=== PATIENT | female | born 1970 | race Caucasian/White ===

== ENCOUNTER 2021-04-27 10:43 | Day surgery (SDC) | payer OTHER ==
[~2021-04-27] VITALS: Ht 165.1 cm; Wt 115.1 kg
== END 2021-04-27 12:49 | disposition home or self-care (01) ==
LOC: ORSCSDS 10:43
PROVIDERS: Internal Medicine Gastroenterology
PROC: 0DBN8ZX Excision of Sigmoid Colon, Via Natural or Artificial Opening Endoscopic, Diagnostic (ICD-10-PCS; principal; 2021-04-27 12:00)
PROC: 0DBL8ZX Excision of Transverse Colon, Via Natural or Artificial Opening Endoscopic, Diagnostic (ICD-10-PCS; principal; 2021-04-27 12:00)
PROC: 0DBH8ZX Excision of Cecum, Via Natural or Artificial Opening Endoscopic, Diagnostic (ICD-10-PCS; principal; 2021-04-27 12:00)
PROC: 0DBM8ZX Excision of Descending Colon, Via Natural or Artificial Opening Endoscopic, Diagnostic (ICD-10-PCS; principal; 2021-04-27 12:00)
DX: Z12.11 Encounter for screening for malignant neoplasm of colon (principal); Z87.891 Personal history of nicotine dependence; D12.0 Benign neoplasm of cecum; K63.5 Polyp of colon; D12.3 Benign neoplasm of transverse colon; K57.30 Diverticulosis of large intestine without perforation or abscess without bleeding; K64.4 Residual hemorrhoidal skin tags; E66.9 Obesity, unspecified; Z68.41 Body mass index [BMI] 40.0-44.9, adult
CPT/HCPCS: 88305; J2704; J7120

== ENCOUNTER 2024-03-15 08:50 | Inpatient (IN) | payer OTHER ==
[~2024-03-15] VITALS: Ht 165.1 cm; Wt 121.9 kg
[2024-03-15 09:48] LABS: BASOPHILS ABSOLUTE AUTO 0.03 K/mm3 (0.00-0.23); BASOPHILS PERCENT AUTO 1 % (0-2); EOSINOPHILS ABSOLUTE AUTO 0.02 K/mm3 (0.00-0.68); EOSINOPHILS PERCENT AUTO 1 % (0-6); Hematocrit 44.6 % (33.0-51.0); Hemoglobin 14.9 g/dL (11.5-16.0); IMMATURE GRAN ABSOLUTE AUTO 0.01 K/mm3 (0.00-0.10); IMMATURE GRAN PERCENT AUTO 0 % (0-1); LYMPHOCYTES ABSOLUTE AUTO 1.16 K/mm3 (0.84-5.20); LYMPHOCYTES PERCENT AUTO 28 % (21-46); MONOCYTES ABSOLUTE AUTO 0.25 K/mm3 (0.16-1.47); MONOCYTES PERCENT AUTO 6 % (4-13); Mean Corpuscular HGB 29.9 pg (26.0-34.0); Mean Corpuscular HGB Conc 33.4 g/dL (31.5-36.5); Mean Corpuscular Volume 90 fL (80-100); NEUTROPHILS ABSOLUTE AUTO 2.69 K/mm3 (1.96-9.15); NEUTROPHILS PERCENT AUTO 65 % (41-73); Platelet Count 181 K/mm3 (150-400); RDW Coefficient Variation 12.2 % (11.7-14.2); Red Blood Cell Count 4.98 M/mm3 (3.80-5.20); White Blood Cell Count 4.16 K/mm3 (4.00-11.30)
[2024-03-15 10:20] LABS: Calcium, Blood 8.7 mg/dL (8.5-10.1); Creatinine, Blood 0.81 mg/dL (0.40-1.00); Potassium, Blood 3.5 mmol/L (3.5-5.5)
[2024-03-15 11:37] LABS: Adenovirus Not Detected (NOT DETECT); Coronavirus 229E Not Detected (NOT DETECT); Coronavirus HKU1 Not Detected (NOT DETECT); Coronavirus NL63 Not Detected (NOT DETECT); Coronavirus OC43 Not Detected (NOT DETECT); Human Metapneumovirus Detected (NOT DETECT); Human Rhinovirus/Enterovirus Not Detected (NOT DETECT); SARS-Cov-2 (COVID-19), BioFire Not Detected (NOT DETECT)
[2024-03-15 11:38] LABS: Bordetella pertussis Not Detected (NOT DETECT); Chlamydophila pneumoniae Not Detected (NOT DETECT); Influenza A/2009-H1 Not Detected (NOT DETECT); Influenza A/H1 Not Detected (NOT DETECT); Influenza A/H3 Not Detected (NOT DETECT); Influenza B Not Detected (NOT DETECT); Mycoplasma pneumoniae Not Detected (NOT DETECT); Parainfluenza Virus 1 Not Detected (NOT DETECT); Parainfluenza Virus 2 Not Detected (NOT DETECT); Parainfluenza Virus 3 Not Detected (NOT DETECT); Parainfluenza Virus 4 Not Detected (NOT DETECT); Respiratory Syncytial Virus Not Detected (NOT DETECT)
[2024-03-15] MEDS ORDERED: Albuterol 2.5 MG/3 ML VIAL INH PRN (12:45)
[2024-03-15] MEDS ORDERED: Acetaminophen 325 MG TABLET PO PRN (12:50)
[2024-03-15] MEDS ORDERED: Ipratropium/Albuterol SulF 2.5-0.5MG/3 ML Amp INH SCH (12:50)
[2024-03-15] MEDS ORDERED: Benzonatate 100 MG Cap PO PRN (12:50)
[2024-03-15] MEDS ORDERED: MethylPREDNISolone Sod Succ 125 MG Vial IV SCH (13:00)
[2024-03-15] MEDS ORDERED: Enoxaparin 40 MG/0.4 ML SYR SC SCH (13:00)
[2024-03-15 15:25] VITALS: BP 117/71
--- NOTE | 2024-03-15 17:02 | NUR ---
ER ADMIT Patient alert & oriented x4, independent in the room. Reports symptoms started monday and have progressed. She received Rocephin IM & by the next day she had a rash on bilateral hands & feet. Lungs diminished, constant dry hacking cough. 2lpm oxygen to maintain sats. Droplet isolation for viral PNA. Vitals stable. Will continue plan of care.
[2024-03-15 19:52] VITALS: BP 133/71
[2024-03-16 03:28] VITALS: BP 127/74
--- NOTE | 2024-03-16 04:50 | NUR ---
SHIFT SUMMARY PT CONTINUES TO HAVE DRY/HACKING NONPRODUCTIVE COUGH. TESSALON GIVEN X1. AMBULATING INDEPENDENTLY TO BATHROOM. ON 2LPM VIA NC. BASELINE IS ROOM AIR. NO NEW CONCERNS THIS MORNING. PT RESTING COMFORTABLY IN BED, HOB ELEVATED. RESPIRATIONS EVEN AND UNLABORED. CALL LIGHT IN REACH
[2024-03-16 05:03] LABS: Hematocrit 41.9 % (33.0-51.0); Hemoglobin 13.9 g/dL (11.5-16.0); Mean Corpuscular HGB 29.6 pg (26.0-34.0); Mean Corpuscular HGB Conc 33.2 g/dL (31.5-36.5); Mean Corpuscular Volume 89 fL (80-100); Mean Platelet Volume 9.8 fL (9.1-12.4); Platelet Count 188 K/mm3 (150-400); RDW Coefficient Variation 12.1 % (11.7-14.2); RDW Standard Deviation 40.2 fL (35.1-46.3); White Blood Cell Count 2.79 K/mm3 (4.00-11.30)
[2024-03-16 05:52] LABS: Bun/Creatinine Ratio 16.8 (12.0-20.0); Calcium, Blood 9.2 mg/dL (8.5-10.1); Creatinine, Blood 0.83 mg/dL (0.40-1.00)
[2024-03-16 06:52] LABS: BAND PERCENT MAN 3 % (0-8); BASOPHILS PERCENT MAN 0 % (0-2); EOSINOPHILS PERCENT MAN 0 % (0-6); LYMPHOCYTES % ATYPICAL MANUAL 5 % (0-0); LYMPHOCYTES ABSOLUTE MAN 0.92 K/mm3 (0.84-5.20); LYMPHOCYTES PERCENT MAN 28 % (21-46); MONOCYTES ABSOLUTE MAN 0.05 K/mm3 (0.16-1.47); MONOCYTES PERCENT MAN 2 % (4-13); NEUTROPHILS ABSOLUTE MAN 1.78 K/mm3 (1.96-9.15); PLASMA CELL ABSOLUTE MAN 0.02 K/mm3 (0.00-0.00); PLASMA CELLS PERCENT MAN 1 % (0-0); SEG NEUTROPHILS PERCENT MAN 61 % (41-73); TOTAL CELLS COUNTED 100
[2024-03-16 07:22] VITALS: BP 143/76
[2024-03-16] MEDS ORDERED: DiphenhydrAMINE HCL 25 MG Cap PO PRN (07:55)
[2024-03-16] MEDS ORDERED: HYDROcodone 5-APAP 325 TAB PO PRN (07:55)
[2024-03-16] MEDS ORDERED: Docusate Sodium 100 MG Cap PO PRN (08:00)
[2024-03-16] MEDS ORDERED: MethylPREDNISolone Sod Succ 125 MG Vial IV SCH (08:00)
[2024-03-16 15:56] VITALS: BP 124/77
--- NOTE | 2024-03-16 16:12 | NUR ---
DAYSHIFT SUMMARY Patient alert & oriented x4. Continues to have dry hacking cough. 2lpm O2 to maintain sats. Rash on feet/hands improving, pinkish color with small spots. Yesterday was bright red color. Brilliant given for cough and benadryl given for pruritis. IV Solumderol administred. No acute changes to patient status. Will continue plan of care.
[2024-03-16 19:21] VITALS: BP 129/71
[2024-03-17 02:58] VITALS: BP 126/74
--- NOTE | 2024-03-17 04:11 | NUR ---
SHIFT SUMMARY LILLIAM WAS ALERT AND FULLY ORIENTED AND INDEPENDENT IN ROOM. PT HAS A HARSH INTERMITTENT COUGH, RESPONDED WELL TO AVAILABLE MEDICATIONS. REDNESS TO HANDS AND FEET HAS IMPROVED, BUT PT STATES ITCHINESS IS WORSE. MEDICATED WITH BENADRYL. NO ACUTE EVENTS, NO CHANGES TO PT CONDITION. PT RESTING IN BED AT A LOW POSITION WITH CALL LIGHT IN REACH.
[2024-03-17 07:47] VITALS: BP 118/68
[2024-03-17] MEDS ORDERED: ACET325 PO (13:30)
[2024-03-17] MEDS ORDERED: ALBU90OI INH (13:30)
[2024-03-17] MEDS ORDERED: HYDR1TAB94 PO (13:33)
[2024-03-17] MEDS ORDERED: BENADRYL25 M1 PO (13:33)
[2024-03-17] MEDS ORDERED: PRED20 PO (13:35)
--- NOTE | 2024-03-17 17:06 | NUR ---
DISCHARGE SUMMARY PT DISCHARGED TO HOME. PT LEFT ROOM VIA WHEELCHAIR WITH THIS RN ESCORT AFTER 1400. IV REMOVED AND BELONGINGS RETURNED. PT EDUCATED ON ALL DISCHARGE INSTRUCTIONS, ALL QUESTIONS ANSWERED. PT AGREES TO FOLLOW UP WITH PCP AND TO TAKE MEDICATIONS PRESCRIBED. PT EAGER TO GO HOME.
== END 2024-03-17 14:13 | disposition home or self-care (01) | DRG 193 ==
LOC: ER 08:50 → MEDS 14:43
PROVIDERS: Emergency Medicine; ADMIT Internal Medicine
DX: J12.3 Human metapneumovirus pneumonia (principal); J96.01 Acute respiratory failure with hypoxia; J44.0 Chronic obstructive pulmonary disease with (acute) lower respiratory infection; Z68.42 Body mass index [BMI] 45.0-49.9, adult; R73.9 Hyperglycemia, unspecified; R79.1 Abnormal coagulation profile; E66.01 Morbid (severe) obesity due to excess calories; L27.0 Generalized skin eruption due to drugs and medicaments taken internally; T36.1X5A Adverse effect of cephalosporins and other beta-lactam antibiotics, initial encounter; G25.1 Drug-induced tremor; T38.0X5A Adverse effect of glucocorticoids and synthetic analogues, initial encounter; Z88.2 Allergy status to sulfonamides; Z87.891 Personal history of nicotine dependence
CPT/HCPCS: 0202U; 36415; 80048; 83036; 83605; 85025; 94640; 94664; 94760; 94761; 96372-59; 96374; 99285-25; A9270; J1650; J2930

== ENCOUNTER → 2025-01-08 | Outpatient (CLI) | payer OTHER ==
[~2025-01-08] MED LIST: ACET325 PO; ALBU90OI INH; BENADRYL25 M1 PO; HYDR1TAB94 PO; PRED20 PO
[2025-01-12 17:59] LABS: HPV HIGH RISK BY TMA Not Detected; HPV SOURCE Cervical
== END ==
LOC: LAB 10:15 → LAB SHORT 10:15
PROVIDERS: Family Medicine
DX: Z01.419 Encounter for gynecological examination (general) (routine) without abnormal findings (principal)
CPT/HCPCS: 87624; G0123